=== PATIENT | male | born 1935 | race Caucasian/White ===

== ENCOUNTER 2016-11-23 05:40 | Inpatient (IN) | payer MEDICARE, OTHER ==
[2016-11-15 15:47] LABS: BASOPHILS 0.4 %; BASOPHILS ABSOLUTE 0.02 10/3/uL (0.0-0.16); EOSINOPHILS 3.9 %; EOSINOPHILS ABSOLUTE 0.22 10/3/uL (0.0-0.53); HEMATOCRIT 38.7 % (40.0-51.0); HEMOGLOBIN 12.6 g/dL (13.6-17.8); IMMATURE GRANULOCYTES 0.2 %; IMMATURE GRANULOCYTES ABSOLUTE 0.01 10/3/uL (0.0-0.11); LYMPHOCYTES 34.4 %; LYMPHOCYTES ABSOLUTE 1.93 10/3/uL (0.67-4.30); MANUAL DIFF NO %; MEAN CORPUS HGB CONC 32.6 g/dL (32.0-36.0); MEAN CORPUSCULAR HEMOGLOB 29.7 pg (26.0-34.0); MEAN CORPUSCULAR VOLUME 91.3 fL (80-100); MEAN PLATELET VOLUME 10.2 fL (9.2-13.0); MONOCYTES 15.2 %; MONOCYTES ABSOLUTE 0.85 10/3/uL (0.21-1.20); NEUTROPHILS 45.9 %; NEUTROPHILS ABSOLUTE 2.58 10/3/uL (2.02-8.40); PLATELET COUNT 204 10/3/uL (150-400); RBC DISTRIBUTION WIDTH 13.3 % (12.0-16.0); RED CELL COUNT 4.24 10/6/uL (4.7-6.1); WHITE BLOOD CELLS 5.6 10/3/uL (4.5-10.5)
[2016-11-15 16:12] LABS: A/G RATIO 1.4 (0.7-1.9); ALKALINE PHOSPHATASE 70 U/L (45-117); BUN (BLOOD UREA NITROGEN) 28 MG/DL (6-23); CALCIUM, SERUM 9.2 MG/DL (8.5-10.4); CHLORIDE, SERUM 107 MMOL/L (96-112); CO2 (CARBON DIOXIDE) 32 MMOL/L (24-34); CREATININE 0.97 MG/DL (0.70-1.30); GFR AFRICAN AMERICAN 85 ML/MIN (>=60); GFR NON AFRICAN AMERICAN 73 ML/MIN (>=60); GLOBULIN 2.9 G/DL (2.5-4.1); GLUCOSE, SERUM 87 MG/DL (60-99); POTASSIUM, SERUM 4.5 MMOL/L (3.5-5.3); SGOT(AST) 24 U/L (5-40); SGPT(ALT) 24 U/L (5-65); SODIUM, SERUM 144 MMOL/L (135-148); TOTAL BILIRUBIN 0.4 MG/DL (0-1.2); TOTAL PROTEIN 6.9 G/DL (6.0-8.5)
[2016-11-15 17:29] LABS: ASCORBIC ACID (UR NOT ORDER) 40 (NEG); BILIRUBIN, URINE NEGATIVE (NEG); KETONE, URINE NEGATIVE (NEG); LEUKOCYTE ESTERASE(NOT OR NEG (NEG); WBC (NOT ORDERED) (RFLEX) < 1 (0-5)
--- NOTE | ~2016-11-23 | CN ---
Consultation Report [facility] [address] [place]. [address] NAME: CLARE REDDY : 36 STATUS : ADM IN PAT#: [id number] AGE: 81 ADM/REG DATE : 11/23/16 MR#: [id number] REPORT SERV DATE: 11/25/16 DICTATED BY: MAGEN JOYNER DATE: 11/24/16 REPORT STATUS : Draft TRANSCRIBED BY: MODL DATE: 11/24/16 UROLOGY CONSULT DATE OF CONSULTATION: 11/24/2016 This consult is from Dr. Saxena regarding urinary retention. CHIEF COMPLAINT: "I could not pass my urine." HISTORY: This is an 81-year-old patient of Dr. Rashid Leon'billie, who underwent a left total knee replacement. He has been having difficulty voiding all night and had a catheter replaced this morning. He now has catheter in place draining clear yellow urine. Dr. Leon performed a TURP on him in 2008 and he stopped his Flomax after that. He was last seen in the office in 11/2015 and had no voiding complaints at that time. He did have a hematuria workup with CT scan, cytology, and cystoscopy, which were all negative in the fall of 2014. He denied any significant voiding complaints prior to admission. 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 ALLERGIES: PREDNISONE AND CODEINE. HOME MEDICATIONS: Calcium with D, Coreg, vitamin D3, Anali, Neurontin, levothyroxine, Robaxin, verapamil, PreserVision AREDS, and warfarin. SOCIAL HISTORY: He is . Denies any current alcohol or tobacco use. REVIEW OF SYSTEMS: GENERAL: Denies fever, chills. 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 CARDIOVASCULAR: As above. GI: Denies symptoms. : As above. MUSCULOSKELETAL: As above. PHYSICAL EXAMINATION: VITAL SIGNS: He is afebrile. His vital signs are stable. GENERAL: He is in no acute distress. NEUROLOGIC: He is alert and oriented x3. PSYCHIATRIC: Appropriate. Consultation Report [place] [id number] [facility] [address] NAME: CLARE REDDY : 36 STATUS : ADM IN [facility]#: [id number] AGE: 81 ADM/REG DATE : 11/23/16 MR#: [id number] REPORT SERV DATE: 11/25/16 DICTATED BY: MAGEN JOYNER DATE: 11/24/16 REPORT STATUS : Draft TRANSCRIBED BY: KEKE DATE: 11/24/16 HEENT: Facial features symmetric. Eyes, sclerae anicteric. NECK: Supple. LUNGS: Equal inspiratory effort bilaterally. CARDIOVASCULAR: He has no lower extremity edema noted. : Normal circumcised phallus. Owusu catheter in place, draining clear yellow urine. LABORATORY STUDIES: Hemoglobin of 12.6, hematocrit of 38.7. Creatinine of 0.97 on 11/15/2016. IMPRESSION: 1. Postoperative urinary retention. 2. History of benign prostatic hypertrophy. PLAN: 1. I have started him on Flomax. I have left a prescription on his chart and written orders. I have discussed this with the patient and his family and they are willing to start back on his medicine. He was last on it in 2008. 2. I explained the necessity for bladder rest with the Owusu catheter in place continuously draining to a bag. I have written orders for the nurses to teach his Owusu catheter, leg bag, and overnight bag care. 3. He may follow up with Dr. Leon for a voiding trial in 10 to 14 days. Thank you very much for this consult. SAI/KEKE Magen Joyner M.D. / [id number] CC: Duc Gunter III, Jr., M.D.
--- NOTE | ~2016-11-23 | HP ---
History And Physical [address] [address] NAME: CLARE REDDY : 37 STATUS : ADM IN [facility]#: [id number] AGE: 81 ADM/REG DATE : 11/23/16 MR#: [id number] REPORT SERV DATE: 11/23/16 DICTATED BY: TREVIN SAXENA III DATE: 11/23/16 REPORT STATUS : Draft TRANSCRIBED BY: MODRusty DATE: 11/23/16 DATE OF ADMISSION: 11/23/2016 CHIEF COMPLAINT: Left knee pain. HISTORY: The patient is an 81-year-old elderly white male who complains of pain in his left knee and has so for several years. It has gotten progressively worse in the last six months, to the point where he is having difficulty ambulating short distances. Complained of rest pain, night pain, all are relieved with nonsteroidal antiinflammatory medicines and intraarticular cortisone injections. X-rays reveal advanced osteoarthritis of his left knee and he is admitted for left total knee arthroplasty. His risks, benefits, and expected outcomes have been explained, but not limited to blood clots, infection, neurovascular injuries, patellar maltracking problems, and component failures. PAST MEDICAL HISTORY: Negative for high blood pressure, diabetes, liver, lung, or kidney problems. He does have history of palpitations, thyroid disorder, and asthma. PREVIOUS SURGERIES: Includes salivary gland surgery, Tripp's cyst, pneumonia. MEDICATIONS: Include Synthroid, verapamil, Flomax, and Coumadin. SOCIAL HISTORY: Nonsmoker. Nondrinker. PHYSICAL EXAMINATION: GENERAL: He is alert and oriented x3. VITAL SIGNS: Vital signs are stable. HEENT: Normocephalic, atraumatic. Pupils are equal, round, and reactive to light and accommodation. Extraocular muscles are intact. NECK: Supple. CHEST: Clear. HEART: Regular rhythm without murmur. ABDOMEN: Benign, soft, and nontender. Positive bowel sounds. ORTHOPEDIC: Examination reveals marked tenderness to his left knee. He has range of motion -15 to 125, varus alignment about 8 to 10 degrees, 2+ valgus stress, 1+ varus stress. Tenderness to the patellofemoral joint. No crepitation. No swelling. No erythema. No warmth. IMAGING: X-rays reveal advanced osteoarthritis of his left knee in the medial compartment, bone on bone, and patellofemoral changes. PLAN: Admission for left total knee arthroplasty. TB/KEKE History And Physical [address] [address] NAME: CLARE REDDY : 37 STATUS : ADM IN [facility]#: [id number] AGE: 81 ADM/REG DATE : 11/23/16 MR#: [id number] REPORT SERV DATE: 11/23/16 DICTATED BY: TREVIN SAXENA III DATE: 11/23/16 REPORT STATUS : Draft TRANSCRIBED BY: KEKE DATE: 11/23/16 Trevin Saxena III, M.D. / [id number] CC: Duc Gunter III, Jr., M.D.
--- NOTE | ~2016-11-23 | DS ---
Discharge Summary [facility] [address] [place]. [address] NAME: CLARE REDDY : 37 STATUS : DIS IN PAT#: [id number] AGE: 81 ADM/REG DATE : 11/23/16 MR#: [id number] REPORT SERV DATE: 12/05/16 DICTATED BY: TREVIN SAXENA III DATE: 12/05/16 REPORT STATUS : Draft TRANSCRIBED BY: KEKE DATE: 12/05/16 Data Collection from hospitalization DISCHARGE DIAGNOSES: 1. Advanced osteoarthritis of the left knee. 2. Postoperative urinary retention. 3. History of benign prostatic hypertrophy. 4. Asthma. CONSULTATIONS: Magen Joyner M.D. PROCEDURES PERFORMED: 1. Left total knee arthroplasty using the DePuy Anemoi Renovablesune system with a size 5 femoral component, size 7 tibial tray, +8 polyethylene insert, with the 41 mm patella posterior stabilized design on 11/23/2016. 2. Venous imaging of the left lower extremity on 11/24/2016. PATHOLOGY: Bone and soft tissue, left knee joint arthroplasty, degenerative joint disease with eburnation. MEDICATIONS: Coreg 25 mg twice daily, Caltrate 600 mg twice daily, vitamin D3 2000 units daily, Colace 100 mg twice daily, Pepcid 20 mg twice daily, ferrous sulfate 300 mg with breakfast and supper, Neurontin 300 mg at bedtime, levothyroxine sodium 100 mcg at bedtime, Anali 180 mg at bedtime, Theragran tablet one with breakfast, Flomax 0.4 mg daily, Verelan 180 mg every morning, Jantoven 2.5 mg at bedtime, Robaxin 750 mg every four hours as needed, Percocet 10/325 one every six hours as needed. CONDITION AT DISCHARGE: Upon discharge, he did appear to be doing well and had no complaints. DISPOSITION: He had been discharged home to continue a regular diet with activity as discussed. He was to follow up with me in the office in two weeks and was to call for the appointment. Also, follow up with Dr. Rashid Leon, in 10 to 14 days and call for this appointment as well. Home health care was in place upon discharge. HOSPITAL COURSE: This 81-year-old elderly male, complained of pain in his left knee and had so for several years. This had gotten progressively worse in the last six months to the point where he was having difficulty ambulating short distances. He complained of rest pain, night pain, all were relieved with nonsteroidal, anti-inflammatory medications, and intra-articular cortisone injections. X-rays had revealed advanced osteoarthritis of his left knee and he was admitted for left total knee arthroplasty. The risks and benefits, as well as expected outcomes were explained, but not limited to, blood clots, infection, neurovascular injuries, patellar maltracking problems, and component failures. He was agreeable with this and was admitted for surgery and further treatment. Upon admission to the hospital, he had been taken to the operating room, where he did undergo the above procedure. He had tolerated this well and was transferred to the recovery room. On postop day #1, he was afebrile and his vital signs were stable. He did appear to be doing well postoperatively. His hemoglobin was at 8.3. He did undergo a left lower extremity venous Discharge Summary [address] [address] NAME: CLARE REDDY : 37 STATUS : DIS IN PAT#: [id number] AGE: 81 ADM/REG DATE : 11/23/16 MR#: [id number] REPORT SERV DATE: 12/05/16 DICTATED BY: TREVIN SAXENA III DATE: 12/05/16 REPORT STATUS : Draft TRANSCRIBED BY: KEKE DATE: 12/05/16 ultrasound. He had also been evaluated by Dr. Magen Joyner, as he had stated that he could not pass his urine and was felt to have postoperative urinary retention. She had placed him on Flomax and he was also to follow up in the office as an outpatient with Dr. Leon in 10 to 14 days. He had also been evaluated by Physical Therapy. On postop day #2, he did continue to do well and had no new complaints. Arrangements were being made for home health care. He was continued on supportive care. His hemoglobin was at 7.0, hematocrit 20.9. He did undergo transfusion with two units of packed red blood cells. On postop day #3, he had remained in stable condition and his hemoglobin post transfusion was up to 9.2, hematocrit was up to 26.9 post transfusion. His INR was at 1.6. He did continue in stable condition and was then discharged with the above instructions. Information collected by: Klever Dee. I submit the above information as my discharge summary. RW/MODL Trevin Saxena III, M.D. / [id number] CC: Duc Gunter III, Jr., M.D. Kymber Habenicht, M.D.
--- NOTE | ~2016-11-23 | OP ---
Record Of Operation [facility] [address] [place]. [address] NAME: CLARE REDDY : 37 STATUS : ADM IN PAT#: [id number] AGE: 81 ADM/REG DATE : 11/23/16 MR#: [id number] REPORT SERV DATE: 11/23/16 DICTATED BY: TREVIN SAXENA III DATE: 11/23/16 REPORT STATUS : Draft TRANSCRIBED BY: MODL DATE: 11/23/16 DATE OF PROCEDURE: 11/23/2016 PREOPERATIVE DIAGNOSIS: Advanced osteoarthritis of left knee. POSTOPERATIVE DIAGNOSIS: Advanced osteoarthritis of left knee. SURGICAL PROCEDURE PERFORMED: Left total knee arthroplasty using the DePuy Attune system with a size 5 femoral component, size 7 tibial tray, +8 polyethylene insert with a 41 mm patella, posterior stabilized design. MOVERS: Analilia SHAW). ANTIBIOTICS: Ancef 2 g. CRYSTALLOID: 1000 mL. TOURNIQUET TIME: 45 minutes. Tranexamic acid 2 g. ESTIMATED BLOOD LOSS: 75 mL. COMPLICATIONS: None. PROCEDURE IN DETAIL: The patient was brought to the operating room, placed on the table in supine position, and general anesthesia was induced. Ancef 2 g was administered intravenously in the operating room. Pneumonic tourniquet was applied to the left upper thigh and left lower extremity was prepped and draped in the usual sterile fashion. It was exsanguinated with a 6-inch Esmarch. Tourniquet was inflated to 350 mmHg. Assuring good anesthesia, a standard midline incision was made directly over the left knee followed by a medial arthrotomy. The patella was everted and the knee was flexed to 90 degrees. Medial and lateral menisci were debrided along the anterior cruciate ligament. A 5 mm step drill was used to enter the femoral canal and intramedullary guide was placed on 5 degrees valgus for left knee. This was pinned to the distal femur and the intramedullary guide was removed. Distal femoral cut was made with the oscillating saw removing 10 mm of distal femur. The distal femur was trialed to a size 5 femoral component and marked along the epicondylar axis. Multi-cutting guide was placed in these contreras, pinned to the distal femur, and the anterior and posterior cuts were made along with the angled chamfer cuts. The intercondylar cutting guide was next centered and pinned to the distal femur. A reciprocating saw was used to make this cut for the posterior stabilized system. Trial reduction was carried out noting good cuts in all planes. Attention was turned toward the tibial side. The external tibial cutting guide was aligned with the second metatarsal ray and pinned to the proximal tibia. Oscillating saw was used to make this cut with a neutral degree cutting block. Trial reduction was carried out with Record Of Operation [address] [place]. [address] NAME: CLARE REDDY : 37 STATUS : ADM IN PAT#: [id number] AGE: 81 ADM/REG DATE : 11/23/16 MR#: [id number] REPORT SERV DATE: 11/23/16 DICTATED BY: TREVIN SAXENA III DATE: 11/23/16 REPORT STATUS : Draft TRANSCRIBED BY: KEKE DATE: 11/23/16 a size 7 tibial baseplate and a +8 polyethylene insert. Relaxation in the deep medial collateral ligament was required for ligamentous balancing purposes. Full extension was achieved, nice flexion to 130 degrees. Flexion and extension gaps were symmetrical. The undersurface of the patella was then resurfaced by transecting 9 to 10 mm of bone. A 41 mm patellar template was used to place three anchor holes in the undersurface of the patella. Two packs of methylmethacrylate were then vacuum mixed, pressurized in the good dry cancellous bone. The real components were placed. Excess cement was removed. Tourniquet was released after 45 minutes. Bleeding was controlled with Bovie electrocautery. Thorough irrigation was carried out throughout the procedure with pulse lavage system. No drains were used. The medial arthrotomy was closed with #2 Ethibond suture and #1 Vicryl suture in 90-degree flexed position. Subcutaneous tissue was closed with 2-0 Vicryl and skin was closed using running 4-0 Monocryl. Benzoin and Steri-Strips were applied followed by an Aquacel dressing. The patient tolerated the procedure well and brought to recovery room in satisfactory condition. MICHAEL/KEKE Trevin Saxena III, M.D. / [id number] CC: Trevin Saxena III, M.D.
[~2016-11-23 05:40] MED LIST: ALLEGRA180 PO; C25 PO; C5 PO; CALTRA600D PO; COREG25 PO; FISH-EPA1000 MG PO; FLOMAX4 PO; ICAPS PO; JANTOVEN2 MG PO; JANTOVEN2.5 MG PO; JANTOVEN5 MG PO; LEVOTHYROXIN100 MCG PO; LEVOTHYROXIN125 MCG PO; LORTAB10 PO; METHOC750B PO; NEUR100 PO; NEUR300 PO; PRESERVISION A1 EAC1 PO; PRESERVISION PO; SYN112 PO; SYN125 PO; TOPXL50 PO; VERELAN180 MG PO; VITAMIN B-121000 MC1 SL; VITAMIN D1000 UNI1 PO; VITAMIN D31000 UNIT PO; ZESTRIL20 MG PO; ZYRTEC ALLGY10 MG PO
[2016-11-23 06:25] LABS: INTERNATIONAL NORMAL RATI 1.3 UNITS (-); PROTIME (NOT ORD) 16.4 SEC (12.0-14.5)
[2016-11-24 05:13] LABS: HEMATOCRIT 25.8 % (40.0-51.0); HEMOGLOBIN 8.3 g/dL (13.6-17.8)
[2016-11-24 05:15] LABS: INTERNATIONAL NORMAL RATI 1.5 UNITS (-); PROTIME (NOT ORD) 17.8 SEC (12.0-14.5)
[2016-11-24 05:23] LABS: BUN (BLOOD UREA NITROGEN) 30 MG/DL (6-23); CHLORIDE, SERUM 99 MMOL/L (96-112); CO2 (CARBON DIOXIDE) 26 MMOL/L (24-34); CREATININE 1.32 MG/DL (0.70-1.30); GFR AFRICAN AMERICAN 59 ML/MIN (>=60); GFR NON AFRICAN AMERICAN 51 ML/MIN (>=60); POTASSIUM, SERUM 5.1 MMOL/L (3.5-5.3); SODIUM, SERUM 132 MMOL/L (135-148)
[2016-11-24 05:24] LABS: CALCIUM, SERUM 7.2 MG/DL (8.5-10.4); GLUCOSE, SERUM 121 MG/DL (60-99)
[2016-11-25 03:52] LABS: HEMATOCRIT 20.9 % (40.0-51.0)
[2016-11-25 03:57] LABS: INTERNATIONAL NORMAL RATI 1.7 UNITS (-); PROTIME (NOT ORD) 20.2 SEC (12.0-14.5)
[2016-11-26 06:25] LABS: INTERNATIONAL NORMAL RATI 1.6 UNITS (-); PROTIME (NOT ORD) 18.5 SEC (12.0-14.5)
[2016-11-26 06:28] LABS: BUN (BLOOD UREA NITROGEN) 22 MG/DL (6-23); CALCIUM, SERUM 8.1 MG/DL (8.5-10.4); CHLORIDE, SERUM 105 MMOL/L (96-112); CO2 (CARBON DIOXIDE) 30 MMOL/L (24-34); CREATININE 1.04 MG/DL (0.70-1.30); GFR AFRICAN AMERICAN 78 ML/MIN (>=60); GFR NON AFRICAN AMERICAN 67 ML/MIN (>=60); GLUCOSE, SERUM 82 MG/DL (60-99); POTASSIUM, SERUM 4.5 MMOL/L (3.5-5.3); SODIUM, SERUM 140 MMOL/L (135-148)
[2016-11-26 06:30] LABS: MEAN CORPUS HGB CONC 34.2 g/dL (32.0-36.0); MEAN CORPUSCULAR HEMOGLOB 29.2 pg (26.0-34.0); MEAN PLATELET VOLUME 10.2 fL (9.2-13.0); WHITE BLOOD CELLS 6.1 10/3/uL (4.5-10.5)
[2016-11-26 06:31] LABS: HEMATOCRIT 26.9 % (40.0-51.0); HEMOGLOBIN 9.2 g/dL (13.6-17.8); MANUAL DIFF YES %; MEAN CORPUSCULAR VOLUME 85.4 fL (80-100); PLATELET COUNT 132 10/3/uL (150-400); RBC DISTRIBUTION WIDTH 16.2 % (12.0-16.0); RED CELL COUNT 3.15 10/6/uL (4.7-6.1)
[2016-11-26 07:26] LABS: BASOPHILS 1 %; BASOPHILS ABSOLUTE (CALC) 0.06 10/3/uL (0.0-0.16); EOSINOPHILS 2 %; EOSINOPHILS ABSOLUTE (CALC) 0.12 10/3/uL (0.0-0.53); LYMPHOCYTES 15 %; LYMPHOCYTES ABSOLUTE (CALC) 0.92 10/3/uL (0.67-4.30); MONOCYTES 9 %; MONOCYTES ABSOLUTE (CALC) 0.55 10/3/uL (0.21-1.20); NEUTROPHILS ABSOLUTE (CALC) 4.45 10/3/uL (2.02-8.40); PLATELET ESTIMATE SLT DEC (ADEQUATE); RBC MORPHOLOGY NORM (NORMAL); SEGMENTED NEUTROPHIL (0) 73 %; TOTAL NUCLEATED CELLS 100
[2016-11-26] MEDS ORDERED: PERCOCET 10/3251 TAB PO (11:38)
[2016-11-26] MEDS ORDERED: FLOMAX4 PO (11:39)
== END 2016-11-26 12:22 | disposition home health service (06) | DRG 470 ==
LOC: SDC/OF 05:40 → PACU 10:11 → 3JRC 11:03
PROVIDERS: Orthopaedic Surgery
PROC: 3E0T3CZ (ICD-10-PCS; 2016-11-23)
PROC: 0SRD0J9 Replacement of Left Knee Joint with Synthetic Substitute, Cemented, Open Approach (ICD-10-PCS; principal; 2016-11-23 07:30)
PROC: 30233N1 Transfusion of Nonautologous Red Blood Cells into Peripheral Vein, Percutaneous Approach (ICD-10-PCS; 2016-11-25)
DX: M17.12 Unilateral primary osteoarthritis, left knee (principal); D62 Acute posthemorrhagic anemia; I48.2 Chronic atrial fibrillation; G62.9 Polyneuropathy, unspecified; E03.9 Hypothyroidism, unspecified; J45.909 Unspecified asthma, uncomplicated; I10 Essential (primary) hypertension; R33.9 Retention of urine, unspecified; Z79.899 Other long term (current) drug therapy; Z79.01 Long term (current) use of anticoagulants; N40.0 Benign prostatic hyperplasia without lower urinary tract symptoms
CPT/HCPCS: 36415; 71020; 80048; 80053; 81001; 85014; 85018; 85025; 85610; 85730; 86850; 86900; 86901; 86920; 87641; 88305; 88311; 93005; 93971; 97110-GP; 97116-GP; 97150-GP; 97161-GP; 97165-GO; A9270-GY; C1776; J0690; J1885; J2250; J2270; J2405; J2550; J2795; J3010; P9016